=== PATIENT | female | born 1975 | race Caucasian/White ===

== ENCOUNTER 2017-08-15 15:03 | Inpatient (IN) | payer MEDICARE, OTHER ==
[~2017-08-15] VITALS: Ht 170.2 cm; Wt 77.0 kg
[~2017-08-15 15:03] MED LIST: DIAZ10TA4 PO; DIPH-423 PO; LITH300C PO; NAPR-1144 PO; QUET400T PO; SUMA50TA PO; SUVO5TAB PO; TRAM50TA2 PO
[2017-08-15] MEDS ORDERED: heparin 10,000 units/1 ML INJ IV ONE ×2 (16:20→16:25)
[2017-08-15] MEDS ORDERED: iohexol 350MG/ML 100ml bottle IV ONE (16:23)
[2017-08-15] MEDS ORDERED: morphine 4 MG/ML inj SYRINge IV ONE ×3 (16:40→17:05)
[2017-08-15 16:41] LABS: BASOPHILS % (AUTO) 0.8 % (0-1); EOSINOPHILS # (AUTO) 0.2 X10'3 (0-0.9); HEMATOCRIT 41.9 % (35.0-45.0); HEMOGLOBIN 14.7 g/dl (12.0-16.0); LYMPHOCYTES # (AUTO) 2.2 X10'3 (1.1-4.8); LYMPHOCYTES % (AUTO) 44.5 % (21-51); MEAN CORPUSCULAR HEMOGLOBIN 33.4 PG (27.0-31.0); MEAN CORPUSCULAR HGB CONC 35.1 % (33.0-36.5); MEAN CORPUSCULAR VOLUME 95.1 FL (78-98); MEAN PLATELET VOLUME 8.4 FL (7.4-10.4); MONOCYTES # (AUTO) 0.4 X10'3 (0-0.9); MONOCYTES % (AUTO) 7.2 % (2-12); NEUTROPHILS # (AUTO) 2.2 X10'3 (1.8-7.7); NEUTROPHILS % (AUTO) 43.5 % (42-75); PLATELET COUNT 191 X10'3 (140-440); RED BLOOD COUNT 4.41 X10'6 (4.20-5.60); RED CELL DISTRIBUTION WIDTH 13.3 % (11.5-14.5); WHITE BLOOD COUNT 5.1 X10'3 (4.5-11.0)
[2017-08-15 16:56] LABS: ALANINE AMINOTRANSFERASE 19 U/L (12-78); ALBUMIN 3.2 G/DL (3.4-5.0); ALKALINE PHOSPHATASE 48 IU/L (46-116); ANION GAP 10 (8-16); ASPARTATE AMINO TRANSFERASE 16 U/L (10-37); BILIRUBIN,TOTAL 0.4 MG/DL (0.1-1.0); BLOOD UREA NITROGEN 6 MG/DL (7-18); BUN/CREATININE RATIO 9.5 (6.6-38.0); CALCIUM 8.5 MG/DL (8.5-10.1); CHLORIDE 104 MMOL/L (99-107); CREATININE 0.63 MG/DL (0.40-0.90); GLUCOSE 80 MG/DL (70-104); POTASSIUM 3.8 MMOL/L (3.5-5.1); SODIUM 139 MMOL/L (135-145); TOTAL CARBON DIOXIDE 25.3 MMOL/L (24-32); TOTAL PROTEIN 6.3 G/DL (6.4-8.2); eGFR > 90 ML/MIN
[2017-08-15] MEDS ORDERED: morphine 4 MG/ML inj SYRINge ONE ×2 (17:22→18:45)
[2017-08-15 18:30] LABS: PARTIAL THROMBOPLASTIN TIME 28 SECONDS (22-32)
[2017-08-15] MEDS ORDERED: LORazepam 2 mg/ml vial IV ONE (19:40)
[2017-08-15] MEDS ORDERED: normal saline 1000ml 1,000 ML IV SCH (20:57)
[2017-08-15] MEDS ORDERED: acetaminophen 325mg tablet PO PRN (21:00)
[2017-08-15] MEDS ORDERED: ondansetron/PF 4mg/2ml inj IV PRN (21:00)
[2017-08-15] MEDS ORDERED: mag hydrox/Alum hydrox/simeth 30ml oral suspension PO PRN (21:00)
[2017-08-15] MEDS ORDERED: CLON-527 PO (21:28)
[2017-08-15] MEDS ORDERED: QUET200T PO (21:28)
[2017-08-15] MEDS ORDERED: BUPR1FIL3 SL (21:28)
[2017-08-15] MEDS ORDERED: LEVO100T PO (21:28)
[2017-08-15] MEDS ORDERED: FENO145T38 PO (21:28)
[2017-08-15] MEDS ORDERED: AMPH10TA23 PO (21:28)
[2017-08-15] MEDS ORDERED: ZIPR80CA2 PO (21:28)
[2017-08-15 22:25] VITALS: BP 106/59
[2017-08-16 05:30] LABS: EOSINOPHILS # (AUTO) 0.2 X10'3 (0-0.9); EOSINOPHILS % (AUTO) 4.7 % (0-6); HEMATOCRIT 42.7 % (35.0-45.0); HEMOGLOBIN 14.7 g/dl (12.0-16.0); LYMPHOCYTES # (AUTO) 2.5 X10'3 (1.1-4.8); MEAN CORPUSCULAR HEMOGLOBIN 33.1 PG (27.0-31.0); MEAN CORPUSCULAR HGB CONC 34.5 % (33.0-36.5); MEAN PLATELET VOLUME 8.7 FL (7.4-10.4); MONOCYTES # (AUTO) 0.4 X10'3 (0-0.9); MONOCYTES % (AUTO) 7.6 % (2-12); NEUTROPHILS # (AUTO) 1.5 X10'3 (1.8-7.7); NEUTROPHILS % (AUTO) 32.7 % (42-75); PLATELET COUNT 190 X10'3 (140-440); RED BLOOD COUNT 4.45 X10'6 (4.20-5.60); RED CELL DISTRIBUTION WIDTH 13.6 % (11.5-14.5); WHITE BLOOD COUNT 4.7 X10'3 (4.5-11.0)
[2017-08-16 05:36] LABS: ALANINE AMINOTRANSFERASE 18 U/L (12-78); ALBUMIN 2.9 G/DL (3.4-5.0); ALKALINE PHOSPHATASE 43 IU/L (46-116); ANION GAP 7 (8-16); ASPARTATE AMINO TRANSFERASE 16 U/L (10-37); BILIRUBIN,TOTAL 0.4 MG/DL (0.1-1.0); BLOOD UREA NITROGEN 5 MG/DL (7-18); BUN/CREATININE RATIO 7.6 (6.6-38.0); CALCIUM 8.3 MG/DL (8.5-10.1); CHLORIDE 108 MMOL/L (99-107); CREATININE 0.66 MG/DL (0.40-0.90); GLUCOSE 87 MG/DL (70-104); POTASSIUM 3.7 MMOL/L (3.5-5.1); SODIUM 143 MMOL/L (135-145); TOTAL CARBON DIOXIDE 27.8 MMOL/L (24-32); TOTAL PROTEIN 5.7 G/DL (6.4-8.2); eGFR > 90 ML/MIN
[2017-08-16 07:00] VITALS: BP 97/58
[2017-08-16] MEDS ORDERED: ADDERALL 10 MG PO SCH (08:00)
[2017-08-16] MEDS: quetiapine 100mg tablet PO SCH ×2 (08:24→21:07)
[2017-08-16] MEDS: clonazePAM 1mg tablet PO SCH ×3 (08:24→21:08)
[2017-08-16] MEDS: ziprasidone 20mg capsule PO SCH ×2 (08:24→21:07)
[2017-08-16] MEDS: levoTHYROXINE 100mcg tablet PO SCH (08:24)
[2017-08-16] MEDS: fenofibrate 145mg tablet PO SCH (08:24)
[2017-08-16 11:00] VITALS: BP 98/58
[2017-08-16 14:34] LABS: PROTHROMBIN TIME 10.7 SECONDS (9.0-12.0)
[2017-08-16] MEDS: ADDERALL 10 MG PO SCH (14:44)
[2017-08-16] MEDS: nicotine 14mg patch - 24hr TD SCH (15:01)
[2017-08-16 18:00] VITALS: BP 109/79
[2017-08-16] MEDS: heparin 10,000 units/1 ML INJ IV PRN (19:56)
[2017-08-16] MEDS ORDERED: warfarin 5mg tablet PO ONE (21:00)
[2017-08-17] VITALS: BP 110/80
[2017-08-17 02:39] LABS: BASOPHILS % (AUTO) 0.8 % (0-1); EOSINOPHILS # (AUTO) 0.2 X10'3 (0-0.9); EOSINOPHILS % (AUTO) 3.3 % (0-6); HEMATOCRIT 43.4 % (35.0-45.0); HEMOGLOBIN 14.9 g/dl (12.0-16.0); LYMPHOCYTES # (AUTO) 2.6 X10'3 (1.1-4.8); LYMPHOCYTES % (AUTO) 49.4 % (21-51); MEAN CORPUSCULAR HEMOGLOBIN 32.9 PG (27.0-31.0); MEAN CORPUSCULAR HGB CONC 34.3 % (33.0-36.5); MEAN CORPUSCULAR VOLUME 96.1 FL (78-98); MEAN PLATELET VOLUME 8.4 FL (7.4-10.4); MONOCYTES # (AUTO) 0.4 X10'3 (0-0.9); MONOCYTES % (AUTO) 7.1 % (2-12); NEUTROPHILS # (AUTO) 2.1 X10'3 (1.8-7.7); NEUTROPHILS % (AUTO) 39.4 % (42-75); PLATELET COUNT 198 X10'3 (140-440); RED BLOOD COUNT 4.51 X10'6 (4.20-5.60); RED CELL DISTRIBUTION WIDTH 13.6 % (11.5-14.5); WHITE BLOOD COUNT 5.3 X10'3 (4.5-11.0)
[2017-08-17 02:53] LABS: INR 1.1 INR; PROTHROMBIN TIME 11.4 SECONDS (9.0-12.0)
[2017-08-17 02:54] LABS: ALANINE AMINOTRANSFERASE 18 U/L (12-78); ALBUMIN 2.8 G/DL (3.4-5.0); ALBUMIN/GLOBULIN RATIO 0.9 (1.1-1.5); ALKALINE PHOSPHATASE 42 IU/L (46-116); ANION GAP 8 (8-16); ASPARTATE AMINO TRANSFERASE 16 U/L (10-37); BILIRUBIN,TOTAL 0.3 MG/DL (0.1-1.0); BLOOD UREA NITROGEN 7 MG/DL (7-18); BUN/CREATININE RATIO 9.6 (6.6-38.0); CALCIUM 8.4 MG/DL (8.5-10.1); CHLORIDE 107 MMOL/L (99-107); CREATININE 0.73 MG/DL (0.40-0.90); GLUCOSE 96 MG/DL (70-104); POTASSIUM 3.8 MMOL/L (3.5-5.1); SODIUM 143 MMOL/L (135-145); TOTAL CARBON DIOXIDE 28.3 MMOL/L (24-32); TOTAL PROTEIN 5.8 G/DL (6.4-8.2); eGFR 88 ML/MIN
[2017-08-17 08:00] VITALS: BP 101/64
[2017-08-17] MEDS: ADDERALL 10 MG PO SCH ×2 (08:24→12:30)
[2017-08-17] MEDS: fenofibrate 145mg tablet PO SCH (08:25)
[2017-08-17] MEDS: clonazePAM 1mg tablet PO SCH ×3 (08:25→20:30)
[2017-08-17] MEDS: levoTHYROXINE 100mcg tablet PO SCH (08:25)
[2017-08-17] MEDS: quetiapine 100mg tablet PO SCH ×2 (08:25→20:30)
[2017-08-17] MEDS: ziprasidone 20mg capsule PO SCH ×2 (08:26→20:30)
[2017-08-17] MEDS: nicotine 14mg patch - 24hr TD SCH (08:30)
[2017-08-17] MEDS: heparin 10,000 units/1 ML INJ IV PRN (10:59)
[2017-08-17 11:00] VITALS: BP 99/62
[2017-08-17 18:00] VITALS: BP 111/68
[2017-08-17] MEDS ORDERED: warfarin 7.5mg tablet PO SCH (21:00)
[2017-08-18] VITALS: BP 108/66
[2017-08-18 01:20] LABS: INR 1.1 INR; PROTHROMBIN TIME 11.7 SECONDS (9.0-12.0)
[2017-08-18 07:20] LABS: ALANINE AMINOTRANSFERASE 27 U/L (12-78); ALBUMIN/GLOBULIN RATIO 0.9 (1.1-1.5); ALKALINE PHOSPHATASE 42 IU/L (46-116); ANION GAP 8 (8-16); ASPARTATE AMINO TRANSFERASE 25 U/L (10-37); BILIRUBIN,TOTAL 0.3 MG/DL (0.1-1.0); BLOOD UREA NITROGEN 8 MG/DL (7-18); BUN/CREATININE RATIO 8.5 (6.6-38.0); CALCIUM 9.2 MG/DL (8.5-10.1); CHLORIDE 106 MMOL/L (99-107); CREATININE 0.94 MG/DL (0.40-0.90); GLUCOSE 96 MG/DL (70-104); SODIUM 143 MMOL/L (135-145); TOTAL CARBON DIOXIDE 29.4 MMOL/L (24-32); TOTAL PROTEIN 6.2 G/DL (6.4-8.2); eGFR 66 ML/MIN
[2017-08-18 07:21] VITALS: BP 102/63
[2017-08-18 07:30] LABS: BASOPHILS % (AUTO) 0.9 % (0-1); EOSINOPHILS # (AUTO) 0.1 X10'3 (0-0.9); EOSINOPHILS % (AUTO) 2.8 % (0-6); HEMATOCRIT 45.8 % (35.0-45.0); HEMOGLOBIN 15.4 g/dl (12.0-16.0); LYMPHOCYTES # (AUTO) 2.3 X10'3 (1.1-4.8); LYMPHOCYTES % (AUTO) 55.5 % (21-51); MEAN CORPUSCULAR HEMOGLOBIN 32.5 PG (27.0-31.0); MEAN CORPUSCULAR HGB CONC 33.7 % (33.0-36.5); MEAN CORPUSCULAR VOLUME 96.5 FL (78-98); MEAN PLATELET VOLUME 9.1 FL (7.4-10.4); MONOCYTES # (AUTO) 0.3 X10'3 (0-0.9); MONOCYTES % (AUTO) 7.5 % (2-12); NEUTROPHILS # (AUTO) 1.4 X10'3 (1.8-7.7); NEUTROPHILS % (AUTO) 33.3 % (42-75); PLATELET COUNT 208 X10'3 (140-440); RED BLOOD COUNT 4.75 X10'6 (4.20-5.60); RED CELL DISTRIBUTION WIDTH 12.9 % (11.5-14.5); WHITE BLOOD COUNT 4.1 X10'3 (4.5-11.0)
[2017-08-18] MEDS: levoTHYROXINE 100mcg tablet PO SCH (08:08)
[2017-08-18] MEDS: clonazePAM 1mg tablet PO SCH ×3 (08:08→20:53)
[2017-08-18] MEDS: fenofibrate 145mg tablet PO SCH (08:08)
[2017-08-18] MEDS: quetiapine 100mg tablet PO SCH ×2 (08:08→20:52)
[2017-08-18] MEDS: ziprasidone 20mg capsule PO SCH ×2 (08:08→20:51)
[2017-08-18] MEDS: ADDERALL 10 MG PO SCH ×2 (08:09→11:39)
[2017-08-18] MEDS: nicotine 14mg patch - 24hr TD SCH (08:09)
[2017-08-18] MEDS: magnesium hydroxide 30ml (MOM) UD suspension PO PRN (08:22)
[2017-08-18 11:32] VITALS: BP 105/63
[2017-08-18] MEDS ORDERED: bisacodyl 10mg suppository rectal RC ONE (17:50)
[2017-08-18 20:00] VITALS: BP 104/73
[2017-08-18] MEDS ORDERED: warfarin 10mg tablet PO SCH (21:00)
[2017-08-19] VITALS: BP 108/74
[2017-08-19 03:14] LABS: BASOPHILS # (AUTO) 0.1 X10'3 (0-0.2); BASOPHILS % (AUTO) 1.1 % (0-1); EOSINOPHILS # (AUTO) 0.1 X10'3 (0-0.9); EOSINOPHILS % (AUTO) 2.4 % (0-6); HEMOGLOBIN 15.6 g/dl (12.0-16.0); LYMPHOCYTES # (AUTO) 2.2 X10'3 (1.1-4.8); LYMPHOCYTES % (AUTO) 45.7 % (21-51); MEAN CORPUSCULAR HGB CONC 34.6 % (33.0-36.5); MEAN CORPUSCULAR VOLUME 95.4 FL (78-98); MEAN PLATELET VOLUME 8.6 FL (7.4-10.4); MONOCYTES # (AUTO) 0.3 X10'3 (0-0.9); MONOCYTES % (AUTO) 6.9 % (2-12); NEUTROPHILS # (AUTO) 2.1 X10'3 (1.8-7.7); NEUTROPHILS % (AUTO) 43.9 % (42-75); PLATELET COUNT 200 X10'3 (140-440); RED BLOOD COUNT 4.72 X10'6 (4.20-5.60); RED CELL DISTRIBUTION WIDTH 13.7 % (11.5-14.5); WHITE BLOOD COUNT 4.9 X10'3 (4.5-11.0)
[2017-08-19 03:33] LABS: ALANINE AMINOTRANSFERASE 32 U/L (12-78); ALBUMIN 3.2 G/DL (3.4-5.0); ALKALINE PHOSPHATASE 43 IU/L (46-116); ANION GAP 8 (8-16); ASPARTATE AMINO TRANSFERASE 32 U/L (10-37); BILIRUBIN,TOTAL 0.2 MG/DL (0.1-1.0); BLOOD UREA NITROGEN 12 MG/DL (7-18); BUN/CREATININE RATIO 12.4 (6.6-38.0); CHLORIDE 104 MMOL/L (99-107); CREATININE 0.97 MG/DL (0.40-0.90); GLUCOSE 94 MG/DL (70-104); POTASSIUM 3.7 MMOL/L (3.5-5.1); SODIUM 139 MMOL/L (135-145); TOTAL CARBON DIOXIDE 26.7 MMOL/L (24-32); TOTAL PROTEIN 6.4 G/DL (6.4-8.2); eGFR 64 ML/MIN
[2017-08-19 03:39] LABS: INR 2.1 INR; PROTHROMBIN TIME 21.5 SECONDS (9.0-12.0)
[2017-08-19 07:00] VITALS: BP 99/62
[2017-08-19] MEDS: fenofibrate 145mg tablet PO SCH (08:26)
[2017-08-19] MEDS: ADDERALL 10 MG PO SCH ×2 (08:26→12:57)
[2017-08-19] MEDS: ziprasidone 20mg capsule PO SCH (08:26)
[2017-08-19] MEDS: clonazePAM 1mg tablet PO SCH ×2 (08:26→12:57)
[2017-08-19] MEDS: quetiapine 100mg tablet PO SCH (08:26)
[2017-08-19] MEDS: levoTHYROXINE 100mcg tablet PO SCH (08:26)
[2017-08-19] MEDS: magnesium hydroxide 30ml (MOM) UD suspension PO PRN (08:27)
[2017-08-19] MEDS: nicotine 14mg patch - 24hr TD SCH (08:27)
[2017-08-19 12:22] VITALS: BP 97/53
[2017-08-19] MEDS ORDERED: COU4T PO (13:19)
[2017-08-20] MEDS ORDERED: warfarin 4mg tablet PO SCH (21:00)
== END 2017-08-19 14:00 | disposition home or self-care (01) | DRG 299 ==
LOC: ER 15:03 → ED HOLD 20:57 → SUR 3N 22:31
PROVIDERS: ADMIT Internal Medicine; ATTEND Internal Medicine
PROC: B3201ZZ Computerized Tomography (CT Scan) of Thoracic Aorta using Low Osmolar Contrast (ICD-10-PCS; principal; 2017-08-15)
DX: I82.492 Acute embolism and thrombosis of other specified deep vein of left lower extremity (principal); I26.99 Other pulmonary embolism without acute cor pulmonale; F17.200 Nicotine dependence, unspecified, uncomplicated; F31.9 Bipolar disorder, unspecified; K59.00 Constipation, unspecified; K76.0 Fatty (change of) liver, not elsewhere classified; M79.7 Fibromyalgia; F41.9 Anxiety disorder, unspecified; G89.29 Other chronic pain; F12.90 Cannabis use, unspecified, uncomplicated; Z66 Do not resuscitate; Z98.51 Tubal ligation status; Z79.899 Other long term (current) drug therapy; Z71.6 Tobacco abuse counseling
CPT/HCPCS: 36415; 71045; 71275; 80053; 83880; 84484; 85025; 85610; 85730; 87070; 93005; 93971; 99285; J1644; J2270; J7030; Q9967

== ENCOUNTER 2018-07-30 16:31 | Emergency (ER) | payer MEDICARE ==
[~2018-07-30] VITALS: Ht 170.2 cm; Wt 73.2 kg
[~2018-07-30 16:31] MED LIST changes: +AMPH10TA23 PO; +BUPR1FIL3 SL; +CLON-527 PO; +COU4T PO; -DIAZ10TA4 PO; -DIPH-423 PO; +FENO145T38 PO; +LEVO100T PO; -LITH300C PO; -NAPR-1144 PO; +QUET200T PO; -QUET400T PO; -SUMA50TA PO; -SUVO5TAB PO; -TRAM50TA2 PO; +ZIPR80CA2 PO
[2018-07-30 16:46] VITALS: BP 120/75
[2018-07-30] MEDS ORDERED: HYDROcodone/acetaminophen 10/325mg tab PO ONE (17:00)
[2018-07-30 17:06] LABS: BASOPHILS % (AUTO) 0.9 % (0-1); EOSINOPHILS # (AUTO) 0.1 X10'3 (0-0.9); EOSINOPHILS % (AUTO) 2.8 % (0-6); HEMATOCRIT 50.2 % (35.0-45.0); HEMOGLOBIN 17.2 g/dl (12.0-16.0); LYMPHOCYTES # (AUTO) 2.2 X10'3 (1.1-4.8); LYMPHOCYTES % (AUTO) 40.9 % (21-51); MEAN CORPUSCULAR HEMOGLOBIN 30.4 PG (27.0-31.0); MEAN CORPUSCULAR HGB CONC 34.2 g/dL (33.0-36.5); MEAN CORPUSCULAR VOLUME 88.8 FL (78-98); MEAN PLATELET VOLUME 7.7 FL (7.4-10.4); MONOCYTES # (AUTO) 0.5 X10'3 (0-0.9); MONOCYTES % (AUTO) 8.5 % (2-12); NEUTROPHILS # (AUTO) 2.5 X10'3 (1.8-7.7); NEUTROPHILS % (AUTO) 46.9 % (42-75); PLATELET COUNT 192 X10'3 (140-440); RED BLOOD COUNT 5.66 X10'6 (4.20-5.60); RED CELL DISTRIBUTION WIDTH 13.2 % (11.5-14.5); WHITE BLOOD COUNT 5.4 X10'3 (4.5-11.0)
[2018-07-30 17:21] LABS: ALANINE AMINOTRANSFERASE 17 U/L (12-78); ALBUMIN/GLOBULIN RATIO 1.2 (1.1-1.5); ALKALINE PHOSPHATASE 102 IU/L (46-116); ANION GAP 8 (8-16); ASPARTATE AMINO TRANSFERASE 14 U/L (10-37); BILIRUBIN,TOTAL 0.4 MG/DL (0.1-1.0); BLOOD UREA NITROGEN 8 MG/DL (7-18); BUN/CREATININE RATIO 10.4 (6.6-38.0); CALCIUM 9.2 MG/DL (8.5-10.1); CHLORIDE 103 MMOL/L (99-107); CREATININE 0.77 MG/DL (0.40-0.90); GLUCOSE 95 MG/DL (70-104); POTASSIUM 3.8 MMOL/L (3.5-5.1); SODIUM 138 MMOL/L (135-145); TOTAL CARBON DIOXIDE 26.6 MMOL/L (24-32); TOTAL PROTEIN 7.4 G/DL (6.4-8.2); eGFR 83 ML/MIN
== END 2018-07-30 17:46 | disposition home or self-care (01) ==
LOC: ER 16:31
DX: D68.59 Other primary thrombophilia (principal); M79.662 Pain in left lower leg; F12.90 Cannabis use, unspecified, uncomplicated; Z98.51 Tubal ligation status; Z79.01 Long term (current) use of anticoagulants; Z79.899 Other long term (current) drug therapy
CPT/HCPCS: 36415; 80053; 85025; 85610; 93971; 99284

== ENCOUNTER 2018-11-18 06:52 | Emergency (ER) | payer MEDICARE ==
[~2018-11-18] VITALS: Ht 170.2 cm; Wt 72.7 kg
[2018-11-18] MEDS ORDERED: proCHLORperazine 10 MG/2 ml inj IV ONE (07:10)
[2018-11-18] MEDS ORDERED: diphenhydrAMINE 50 mg/ml inj IV ONE (07:10)
[2018-11-18] MEDS ORDERED: normal saline 1000ML IV soln IVB ONE (07:10)
[2018-11-18] MEDS ORDERED: fentaNYL/PF 50MCG/1 ML 2ML syringe IV ONE (08:15)
[2018-11-18] MEDS ORDERED: morphine 4 MG/ML inj SYRINge IV ONE (08:45)
[2018-11-18] MEDS ORDERED: ketorolac trometh. 30mg/ml inj. IV ONE (09:55)
[2018-11-18] MEDS ORDERED: BUTA-281 PO (10:18)
[2018-11-18] MEDS ORDERED: LORazepam 2 mg/ml vial IV ONE (10:20)
[2018-11-18 10:27] VITALS: BP 130/87
== END 2018-11-18 10:30 | disposition home or self-care (01) ==
LOC: ER 06:53
DX: R51 Headache (principal); R11.2 Nausea with vomiting, unspecified; R00.0 Tachycardia, unspecified; F41.9 Anxiety disorder, unspecified; F31.9 Bipolar disorder, unspecified; F17.200 Nicotine dependence, unspecified, uncomplicated; F12.90 Cannabis use, unspecified, uncomplicated; Z98.51 Tubal ligation status; Z86.711 Personal history of pulmonary embolism; Z79.01 Long term (current) use of anticoagulants; Z79.899 Other long term (current) drug therapy
CPT/HCPCS: 70450; 70544; 70551; 96361; 96374; 96375; 99284; J0780; J1200; J1885; J2060; J2270; J3010; J7030

== ENCOUNTER 2018-12-07 01:54 | Emergency (ER) | payer MEDICARE ==
[~2018-12-07] VITALS: Ht 170.2 cm; Wt 62.5 kg
[~2018-12-07 01:54] MED LIST changes: +BUTA-281 PO
[2018-12-07] MEDS ORDERED: dexamethasone sod phosphate 10mg/ml inj IV STA (02:02)
[2018-12-07] MEDS ORDERED: normal saline 1000ML IV soln IVB ONE (02:05)
[2018-12-07] MEDS ORDERED: SUMAtriptan succ. 6 MG/0.5ml vial SQ ONE (02:05)
[2018-12-07] MEDS ORDERED: ketorolac tromethamine 15mg/ml inj. IV ONE (02:05)
[2018-12-07] MEDS ORDERED: proCHLORperazine 10 MG/2 ml inj IV ONE (02:05)
--- NOTE | 2018-12-07 02:22 | NUR ---
Patient refused to have the light turned off because, "we will just forget she is back here"
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
[2018-12-07] MEDS ORDERED: diphenhydrAMINE 50 mg/ml inj IV ONE (02:50)
--- NOTE | 2018-12-07 03:08 | NUR ---
Patient laying in bed relaxed, having quiet conversation with who is at bedside. Patient stated "I feel like I might actually be able to sleep"
[2018-12-07] MEDS ORDERED: SUMA25TA35 PO (03:36)
[2018-12-07] MEDS ORDERED: PROC5TAB56 PO (03:36)
[2018-12-07 04:35] VITALS: BP 148/77
== END 2018-12-07 04:39 | disposition home or self-care (01) ==
LOC: ER 01:54
DX: G43.909 Migraine, unspecified, not intractable, without status migrainosus (principal); R11.2 Nausea with vomiting, unspecified; H53.149 Visual discomfort, unspecified; M79.7 Fibromyalgia; F12.90 Cannabis use, unspecified, uncomplicated; Z98.51 Tubal ligation status; Z86.718 Personal history of other venous thrombosis and embolism; Z79.899 Other long term (current) drug therapy; Z79.01 Long term (current) use of anticoagulants
CPT/HCPCS: 96372; 96374; 96375; 99283; J0780; J1100; J1200; J1885; J7030; J3030

== ENCOUNTER 2022-05-30 15:56 | Emergency (ER) | payer MEDICARE ==
[~2022-05-30] VITALS: Ht 170.2 cm; Wt 72.7 kg
[~2022-05-30 15:56] MED LIST changes: +PROC5TAB56 PO; +SUMA25TA35 PO
[2022-05-30 16:10] VITALS: BP 110/75
== END 2022-05-30 20:06 | disposition left against medical advice (07) ==
LOC: ER 15:57
DX: M79.605 Pain in left leg (principal); Z53.21 Procedure and treatment not carried out due to patient leaving prior to being seen by health care provider
CPT/HCPCS: 99281

== ENCOUNTER 2022-05-31 09:52 | Emergency (ER) | payer MEDICARE ==
[~2022-05-31] VITALS: Ht 170.2 cm; Wt 72.7 kg
[2022-05-31 10:41] VITALS: BP 130/57
[2022-05-31 12:18] LABS: BASOPHILS % (AUTO) 1.1 % (0-1); EOSINOPHILS % (AUTO) 0.8 % (0-6); HEMATOCRIT 41.7 % (35.0-45.0); HEMOGLOBIN 14.3 g/dl (12.0-16.0); LYMPHOCYTES # (AUTO) 1.2 X10'3 (1.1-4.8); LYMPHOCYTES % (AUTO) 30.2 % (21-51); MEAN CORPUSCULAR HEMOGLOBIN 35.8 PG (27.0-31.0); MEAN CORPUSCULAR HGB CONC 34.4 g/dL (33.0-36.5); MEAN CORPUSCULAR VOLUME 104.2 FL (78-98); MEAN PLATELET VOLUME 8.1 FL (7.4-10.4); MONOCYTES # (AUTO) 0.3 X10'3 (0-0.9); MONOCYTES % (AUTO) 8.5 % (2-12); NEUTROPHILS # (AUTO) 2.3 X10'3 (1.8-7.7); NEUTROPHILS % (AUTO) 59.4 % (42-75); PLATELET COUNT 186 X10'3 (140-440); RED CELL DISTRIBUTION WIDTH 14.5 % (11.5-14.5); WHITE BLOOD COUNT 3.9 X10'3 (4.5-11.0)
[2022-05-31 12:28] LABS: ALANINE AMINOTRANSFERASE 30 U/L (12-78); ALBUMIN 3.6 G/DL (3.4-5.0); ALBUMIN/GLOBULIN RATIO 1.4 (1.1-1.5); ALKALINE PHOSPHATASE 63 IU/L (46-116); ANION GAP 6 (8-16); APTT 27 SECONDS (22-32); ASPARTATE AMINO TRANSFERASE 32 U/L (10-37); BILIRUBIN,TOTAL 0.4 MG/DL (0.1-1.0); BLOOD UREA NITROGEN 3 MG/DL (7-18); BUN/CREATININE RATIO 4.9 (10.0-20.0); CALCIUM 8.5 MG/DL (8.5-10.1); CHLORIDE 104 MMOL/L (99-107); CREATININE 0.61 MG/DL (0.40-0.90); GLUCOSE 110 MG/DL (70-104); POTASSIUM 3.9 MMOL/L (3.5-5.1); SODIUM 139 MMOL/L (135-145); TOTAL CARBON DIOXIDE 28.8 MMOL/L (24-32); TOTAL PROTEIN 6.2 G/DL (6.4-8.2); eGFR > 90 ML/MIN
[2022-05-31 13:08] LABS: CLARITY,URINE CLOUDY (Clear); COLOR,URINE YELLOW (Yellow); GLUCOSE, URINE NEGATIVE (Neg); KETONES,URINE NEGATIVE (Neg); LEUKOCYTE ESTERASE ,URINE NEGATIVE (Neg); NITRITES, URINE NEGATIVE (Neg); OCCULT BLOOD,URINE NEGATIVE (Neg); PROTEIN,URINE NEGATIVE (Neg); UROBILINOGEN,URINE 0.2 E.U/dL (0.2-1.0)
[2022-05-31 13:13] LABS: UA COLLECTION TYPE NON-SPECIFIED
[2022-05-31 13:14] LABS: BACTERIA,URINE 2+ /HPF (Neg); RBC,URINE 0-2 /HPF (0-2); SQUAMOUS EPITHELIAL CELL,UR MANY /LPF (FEW); TRANSITIONAL EPI CELLS,URINE MODERATE /HPF; WBC,URINE 0-4 /HPF (0-4)
[2022-05-31 13:30] LABS: D-DIMER 0.24 MG/L FEU (0-0.50)
[2022-05-31 13:30] LABS: URINE AMPHETAMINE SCREEN NEGATIVE (Neg); URINE BARBITUATE SCREEN NEGATIVE (Neg); URINE BENZODIAZEPINES SCREEN NEGATIVE (Neg); URINE CANNABINOID SCREEN POSITIVE (Neg); URINE COCAINE SCREEN NEGATIVE (Neg); URINE METHADONE SCREEN NEGATIVE (Neg); URINE OPIATE SCREEN NEGATIVE (Neg); URINE PHENCYCLIDINE SCREEN NEGATIVE (Neg)
== END 2022-05-31 13:48 | disposition home or self-care (01) ==
LOC: ER 09:52
DX: M79.605 Pain in left leg (principal); F41.9 Anxiety disorder, unspecified; F31.9 Bipolar disorder, unspecified; G43.909 Migraine, unspecified, not intractable, without status migrainosus; F12.10 Cannabis abuse, uncomplicated; Z79.899 Other long term (current) drug therapy; Z79.1 Long term (current) use of non-steroidal anti-inflammatories (NSAID); Z79.2 Long term (current) use of antibiotics
CPT/HCPCS: 36415; 71045; 80053; 80305; 81001; 83880; 84484; 85025; 85379; 85610; 85730; 93005; 93971; 99285

== ENCOUNTER 2023-11-30 11:15 | Emergency (ER) | payer MEDICARE ==
[~2023-11-30] VITALS: Ht 170.2 cm; Wt 79.5 kg
[~2023-11-30 11:15] MED LIST changes: +BUTA-245 PO; -BUTA-281 PO
[2023-11-30 11:52] LABS: BASOPHILS % (AUTO) 0.6 % (0-1); EOSINOPHILS % (AUTO) 0.7 % (0-6); HEMOGLOBIN 15.5 g/dl (12.0-16.0); LYMPHOCYTES # (AUTO) 1.2 X10'3 (1.1-4.8); LYMPHOCYTES % (AUTO) 21.9 % (21-51); MEAN CORPUSCULAR HGB CONC 34.5 g/dL (33.0-36.5); MEAN CORPUSCULAR VOLUME 101.5 FL (78-98); MEAN PLATELET VOLUME 8.8 FL (7.4-10.4); MONOCYTES # (AUTO) 0.3 X10'3 (0-0.9); MONOCYTES % (AUTO) 6.1 % (2-12); NEUTROPHILS # (AUTO) 3.9 X10'3 (1.8-7.7); NEUTROPHILS % (AUTO) 70.7 % (42-75); PLATELET COUNT 214 X10'3 (140-440); RED BLOOD COUNT 4.43 X10'6 (4.20-5.60); RED CELL DISTRIBUTION WIDTH 14.3 % (11.5-14.5); WHITE BLOOD COUNT 5.5 X10'3 (4.5-11.0)
[2023-11-30 11:58] LABS: ALANINE AMINOTRANSFERASE 60 U/L (12-78); ALBUMIN 4.1 G/DL (3.4-5.0); ALBUMIN/GLOBULIN RATIO 1.2 (1.1-1.5); ALKALINE PHOSPHATASE 82 IU/L (46-116); ANION GAP 10 (8-16); ASPARTATE AMINO TRANSFERASE 41 U/L (10-37); BILIRUBIN,TOTAL 0.4 MG/DL (0.1-1.0); BLOOD UREA NITROGEN 10 MG/DL (7-18); BUN/CREATININE RATIO 11.4 (10.0-20.0); CALCIUM 8.7 MG/DL (8.5-10.1); CHLORIDE 101 MMOL/L (99-107); CREATININE 0.88 MG/DL (0.40-0.90); GLUCOSE 153 MG/DL (70-104); POTASSIUM 3.7 MMOL/L (3.5-5.1); SODIUM 138 MMOL/L (135-145); TOTAL CARBON DIOXIDE 27.1 MMOL/L (24-32); TOTAL PROTEIN 7.5 G/DL (6.4-8.2); eCRCL 78 ML/MIN; eGFR 69 ML/MIN
[2023-11-30 12:06] LABS: PRO BRAIN NATRIURETIC PEPTIDE 53 PG/ML (0-125)
[2023-11-30 13:50] VITALS: TEMP 97.9
[2023-11-30] MEDS: hydrOXYzine 25 MG tablet PO ONE (14:56)
[2023-11-30 15:05] VITALS: RESP 20; O2SAT 98
[2023-11-30 15:10] LABS: D-DIMER 0.37 MG/L FEU (0-0.50)
[2023-11-30 15:28] VITALS: BP 122/77; PULSE 58
== END 2023-11-30 15:34 | disposition home or self-care (01) ==
LOC: ER 11:15
DX: R00.2 Palpitations (principal); G43.909 Migraine, unspecified, not intractable, without status migrainosus; F41.9 Anxiety disorder, unspecified; F31.9 Bipolar disorder, unspecified; M79.7 Fibromyalgia; F12.90 Cannabis use, unspecified, uncomplicated; Z88.8 Allergy status to other drugs, medicaments and biological substances; Z79.899 Other long term (current) drug therapy; Z86.711 Personal history of pulmonary embolism; Z86.718 Personal history of other venous thrombosis and embolism; Z98.51 Tubal ligation status
CPT/HCPCS: 36415; 71045; 80053; 83880; 84484; 85025; 85379; 93005; 99285; Q0177

== ENCOUNTER 2024-01-25 08:29 | Emergency (ER) | payer MEDICARE ==
[~2024-01-25] VITALS: Ht 170.2 cm; Wt 82.2 kg
[2024-01-25 08:35] VITALS: BP 124/79; PULSE 96; TEMP 97.1; O2SAT 99
[2024-01-25 09:45] VITALS: RESP 16
== END 2024-01-25 10:15 | disposition home or self-care (01) ==
LOC: ER 08:29
DX: F41.9 Anxiety disorder, unspecified (principal); R00.0 Tachycardia, unspecified; F32.A Depression, unspecified; M79.7 Fibromyalgia; F12.90 Cannabis use, unspecified, uncomplicated; G43.909 Migraine, unspecified, not intractable, without status migrainosus; Z88.8 Allergy status to other drugs, medicaments and biological substances; Z79.899 Other long term (current) drug therapy; Z79.01 Long term (current) use of anticoagulants; Z86.718 Personal history of other venous thrombosis and embolism; Z86.711 Personal history of pulmonary embolism; Z98.51 Tubal ligation status
CPT/HCPCS: 93005; 93971; 99284